=== PATIENT | male | born 1985 | race Two or more races ===

== ENCOUNTER → 2019-09-16 | Emergency (ER) | payer OTHER ==
[~2019-09-16] VITALS: Ht 172.7 cm; Wt 100.0 kg
[2019-09-16 09:06] VITALS: BP 168/119
== END | disposition home or self-care (01) ==
LOC: ER 08:58 → EEVIPCON 08:58
DX: M25.531 Pain in right wrist (principal); F17.200 Nicotine dependence, unspecified, uncomplicated; X50.1XXA Overexertion from prolonged static or awkward postures, initial encounter; Y93.89 Activity, other specified; Y92.89 Other specified places as the place of occurrence of the external cause; Y99.9 Unspecified external cause status
CPT/HCPCS: 29125; 99283